=== PATIENT | female | born 1980 | race Hispanic/Latino ===

== ENCOUNTER 2016-09-10 03:58 | Emergency (ER) | payer OTHER ==
[~2016-09-10] VITALS: Ht 162.6 cm; Wt 75.0 kg
[~2016-09-10 03:58] MED LIST: BUSP7.5T5 PO; IMI100 PO; NAPR500T PO; OMEP20CA11 PO; PROP60CA2 PO; RANI300C PO
[2016-09-10 04:00] VITALS: BP 132/87; PULSE 99; RESP 24; O2SAT 100
--- NOTE | 2016-09-10 04:13 | ED.REPORT ---
HPI-Extremity Problem Lower Date of Service September 10, 2016 ED Provider: Herberth Chaney MD Patient is a 35 year old female with a history of bursitis, anxiety pituitary adenoma and migraines who presents to the ED complaining of right hip and knee pain onset a week ago. She denies fever, but endorses chills over the past week. The patient describes the pain as throbbing and rates it as a 10/10. The pain is exacerbated by movement. Patient was seen at urgent care five days ago where she was given an injection of cortisone, which improved symptoms initially but the pain has gotten progressively worse. Nursing Notes Stated Complaint: RIGHT LEG PAIN Chief Complaint: Extremity Trauma Nursing Notes Reviewed: Yes Allergies: Coded Allergies: No Known Drug Allergies (Verified Allergy, Unknown, 09/10/16) Scheduled Buspirone (Buspirone) 7.5 Mg Tablet 7.5 MG PO BID Omeprazole (Omeprazole) 20 Mg Capsule.dr 20 MG PO BID Propranolol ER (Propranolol ER) 60 Mg Cap.sa.24h 20 MG PO DAILY Ranitidine (Ranitidine) 300 Mg Capsule 300 MG PO DAILY Sumatriptan (Imitrex) 100 Mg Tablet 100 MG PO ASDIRECTED Scheduled PRN Naproxen (Naprosyn) 500 Mg Tablet 500 MG PO BID PRN PRN For Pain General Time Seen by MD: 04:12 Chief Complaint Leg injury right Hx Obtained From: Patient Arrived By: Walk-in Onset Occurred: 6 days ago Symptom Duration: Since onset Location: : Leg right Severity: Current: Pain level 10 out of 10 Exacerbated by: Movement Recent Healthcare: No recent doctor visit, No recent hospitalization Similar Sx Previous: No Past Medical History Past Medical History Notes: [facility] Past Medical History Diagnosis of stomach ulcer one month ago Anxiety pituitary adenoma GERD migraines Past Surgical History breast augmentation Reports: Gastric bypass, Tubal ligation Family History non-contributory Smoking History Current Every Day Smoker, Former Smoker Social History Alcohol Use: Denies alcohol use Drug Use: Denies drug use Other Social History: Good social support, Occupation Does not work Ambulatory Status Independent Review of Systems Constitutional: Denies: Fever Musculoskeletal: Reports: Extremity pain (right leg) Complete sys rev & neg: except as marked. Physical Exam Initial Vital Signs Vital Signs (First) Date Time Temp Pulse Resp B/P Pulse Ox O2 Delivery O2 Flow Rate FiO2 5/8/17 04:00 36.3 99 24 132/87 100 Room Air Initial VS: Reviewed, Vital signs normal Lower Extremity / Pelvis / MS: Neurologic intact, Vascular intact tender over right hip joint and hip versa restricted range of motion from pain Ankle / Foot: Neurologic intact, Vascular intact General/Constitutional: Awake, Alert Distress / Hydration: Positive: Distress mild Respiratory / Chest: Atraumatic, No respiratory distress Skin: Atraumatic, No rash, Warm, Dry Neurologic: Oriented X3, Speech NL, No motor deficits, No sensory deficits Head / Eyes: Atraumatic, Normocephalic, PERRL, EOMI Upper Extremity / MS: Atraumatic, Full range of motion Psychiatric: Affect NL, Mood NL Interpretation & Diagnostics Lab Results Interpretation Result Diagram: 09/10/16 0605 Test 09/10/16 06:05 White Blood Count 7.2th/mm3 (3.8-10.1) Red Blood Count 3.97mil/mm3 (3.90-5.20) Hemoglobin 11.5g/dL (12.0-15.6) Hematocrit 35.0% (35.0-46.0) Mean Corpuscular Volume 88.2fL (81-100) Mean Corpuscular Hemoglobin 29.0pg (27.0-35.0) Mean Corpuscular Hemoglobin Concent 32.9% (32.0-37.0) Red Cell Distribution Width 13.2% (12.3-15.4) Platelet Count 267bil/L (150-400) Neutrophils (%) (Auto) 69.4% (40-74) Lymphocytes (%) (Auto) 21.6% (14-46) Monocytes (%) (Auto) 7.7% (4-12) Eosinophils (%) (Auto) 0.6% (0-5) Basophils (%) (Auto) 0.4% (0-3) Hold Forrest Top Tube Received (Received) Re-Eval/Medical Decision Med Decision/Clinical Course 35-year-old female with severe right hip pain progressive over the last several days. She was initially evaluated by me and evaluation was ordered. Her care is being turned over at change of shift to Dr. Anguiano. Source of Hx: Old records Re-Evaluation/Progress : Time of Eval: 05:29 Patient Status: Condition unchanged Re-Evaluation/Progress Note: Further gained patient history and physical exam. Counseled Regarding: Diagnosis, Need for follow-up Discharge & Departure Shift Change Sign-Out Patient Care Transferred: Yes Discussed Complaint(s): Yes Laboratory Evaluation: Ordered, not yet done Imaging Studies: Ordered, not yet done Additonal Information: Transferred to Dr. Anguiano Referrals: Nancy Palmer DO (PCP) Care Transferred to: Dr. Anguiano Care Transferred at: 06:00 [place] Attestation Portions of this note were transcribed by Kelli Diaz I, Dr. Chaney personally performed the history, physical exam and medical decision-making; I reviewed and confirmed the accuracy of the information in the transcribed note. Signed by: Marino Andrade, 09/10/16 and 0418 copies to: Nancy Palmer Howard L MD September 10, 2016 04:13 Quiana Diaz September 10, 2016 04:19 ALEKSANDER WOMACK September 10, 2016 06:27
[2016-09-10] MEDS ORDERED: 0.9% Sodium Chloride 1,000 ML IV ONE (05:57)
[2016-09-10] MEDS ORDERED: Ketorolac 15 mg/mL Inj IV ONE (06:00)
[2016-09-10] MEDS ORDERED: Ondansetron 2 mg/mL 2 mL Inj IV PRN (06:00)
[2016-09-10] MEDS ORDERED: HYDROmorphone 0.5 mg/0.5 mL iSecure Syringe IVPUSH PRN (06:00)
[2016-09-10 06:24] LABS: BASOPHILS % (AUTO) 0.4 % (0-3); EOSINOPHILS % (AUTO) 0.6 % (0-5); MONOCYTES % (AUTO) 7.7 % (4-12); Mean Corpuscular Volume 88.2 fL (81-100); NEUTROPHILS % (AUTO) 69.4 % (40-74); Platelet Count 267 bil/L (150-400)
[2016-09-10] MEDS ORDERED: OXYC-474 PO (07:47)
[2016-09-10] MEDS ORDERED: NPR500T PO (07:47)
[2016-09-10 07:59] VITALS: BP 111/49; PULSE 66; RESP 14; O2SAT 98
--- NOTE | 2016-09-10 08:34 | DRSVH ---
PROCEDURE: CT HIP RIGHT W/O CONTRAST (04975) INDICATIONS: extreme right hip pain TECHNIQUE: Noncontrast 3 mm axial sections acquired through the bony pelvis. Additional 3 mm axial sections acq uired through the symptomatic hip joint, with coronal and sagittal reformats. COMPARISON: None. FINDINGS: Image quality: Excellent. Bones: No fracture or dislocation. There is mild degeneration of the sacroiliac joints. The visuali zed lower lumbar spine demonstrates mild to moderate generative disease at the presumed L4-5 level wi th disc space narrowing, endplate sclerosis and osteophytosis, and vacuum disc phenomenon. There is also a broad-based disc bulge demonstrated. Soft tissues: There surgical clips in the right lower quadrant Magendie associated with prior appende ctomy. There are are a few scattered colonic diverticula demonstrated. No free fluid within the pel vis. The visualized musculature is symmetric in appearance. No definite hip joint effusion. IMPRESSION: 1. No fracture or dislocation. 2. Mild to moderate degenerative disc disease at the presumed L4-5 level. Dictated by: Castro Harrison M.D. on 09/10/2016 at 8:19 Approved by: Castro Harrison M.D. on 09/10/2016 at 8:32
== END 2016-09-10 08:00 | disposition home or self-care (01) ==
LOC: SED 03:58
DX: M25.551 Pain in right hip (principal); K21.9 Gastro-esophageal reflux disease without esophagitis; F17.200 Nicotine dependence, unspecified, uncomplicated
CPT/HCPCS: 36415; 73700; 80053; 81025; 83735; 85025; 85651; 86140; 96361; 96374; 96375; 99285; J1170; J1885; J2405; J7030